=== PATIENT | male | born 1960 | race Caucasian/White ===

== ENCOUNTER → 2018-08-04 10:58 | Outpatient (POV) | payer BC, SELFPAY | PROVIDERS: Visit Provider Nurse Practitioner Family | DX: Z00.00 Encounter for general adult medical examination without abnormal findings (principal) ==

== ENCOUNTER 2018-10-16 09:30 | Outpatient (RCR) | payer BC, SELFPAY | END 2018-10-16 09:35 | disposition home or self-care (01) | LOC: PT 09:30 | PROVIDERS: Visit Provider Orthopaedic Surgery | DX: Z96.641 Presence of right artificial hip joint (principal); M25.551 Pain in right hip | CPT/HCPCS: 97110; 97163 ==

== ENCOUNTER → 2019-07-14 08:45 | Outpatient (CLI) | payer BC, SELFPAY ==
--- NOTE | 2019-07-14 08:49 | CT_ITS ---
PROCEDURE: CT LUNG SCREENING CLINICAL INDICATION: H/O NICOTINE DEPENDENCE Forty-three pack-year smoking history, asymptomatic for lung cancer COMPARISON: No exams were available for comparison TECHNIQUE: The exam was performed on a GE Light Speed [address] scanner using 2.90 mGy CTDI. A low dose helical CT CHEST was performed on a multi-detector scanner. All CT scans at the facility use one or more dose reduction, viz: automated exposure control, ma/kV adjustment per patient size (including targeted exams where dose is matched to indication, i.e. head), or iterative reconstruction technique. The LDCT was performed in a facility that meets the criteria for the screening program. Data regarding this exam was submitted to ACR which is an approved registry. The order for this exam indicates that it came as a result of a lung cancer screening counseling shard decision-making visit that included all the elements required of such a visit including smoking cessation. The radiologist interpreting this exam meets the [facility] criteria for the LDCT lung cancer screening program. The exam is reported using the Lung-RADS classification scale and reported to the ACR registry. NOTE: This study was performed for the specific purposes of lung cancer screening and is not an alternative to diagnostic chest CT. RADIATION DOSE: CTDI vol(CT dose Index-volume) = 2.90mG DLP (Dose Length Product) = 116.98 mGcm Lung Rads Category: FINDINGS: Changes of COPD with scarring. 7 mm noncalcified nodules present in the superior segment of the right lower lobe. Mild paraseptal emphysematous change OTHER FINDINGS: Scattered small axillary nodes measuring up to 1.5 x 1 cm in the left axilla. Coronary artery calcifications are present IMPRESSION: Lung rads category 3, probably benign. Recommend six-month CT chest without and with contrast Dictated by: Edgardo Goodrich MD 07/19/2019 11:55 Electronically signed by Edgardo Goodrich MD in [place] 07/19/2019 11:55
== END ==
PROVIDERS: PCP Internal Medicine Adolescent Medicine; Visit Provider Internal Medicine Adolescent Medicine
DX: Z87.891 Personal history of nicotine dependence (principal); Z12.2 Encounter for screening for malignant neoplasm of respiratory organs

== ENCOUNTER → 2020-01-14 08:19 | Outpatient (CLI) | payer BC, SELFPAY ==
[2020-01-14 08:46] LABS: Blood Urea Nitrogen 8 mg/dl (9-20); Estimated Glomerular Filt Rate 99 ml/min (>60); GFR (African American) 120 ML/MIN (>60)
--- NOTE | 2020-01-14 09:02 | CT_ITS ---
PROCEDURE: CT CHEST WO/W CON CLINCAL INDICATION: PULMONARY NODULE follow up, lung nodules COMPARISON: CT CT LUNG SCREENING from 07/14/2019 TECHNIQUE: IV Contrast: 75ml Isovue 370 Axial images obtained with sagittal and coronal reformats. All CT scans at the facility use one or more dose reduction, viz: automated exposure control, ma/kV adjustment per patient size (including targeted exams where dose is matched to indication, i.e. head), or iterative reconstruction technique. FINDINGS: HEART AND MEDIASTINAL STRUCTURES: Coronary artery calcifications present. No mediastinal or hilar mass or adenopathy. LUNGS AND PLEURAL SPACES: Changes of COPD with scattered areas of scarring. 2 mm noncalcified nodule right upper lobe laterally image 23 unchanged. 3 mm fissural nodule in the right major fissure unchanged. There is a 7 mm noncalcified image 39 unchanged. No new nodules evident. No effusions or infiltrates. There is some mild paraseptal emphysematous changes. BONY STRUCTURES: No acute bony abnormalities apparent. UPPER ABDOMEN: There is nonspecific thickening of the esophagus in its mid and lower 3rd ADDITIONAL FINDINGS: There is left axillary adenopathy. Nodes in the left axilla measure up to 2 by 1.3 cm. These nodes have increased in size compared to the previous exam with that particular lymph node previously measuring 1.5 by 0.8 cm. Small nodes are present in the right axilla which are not significantly changed. IMPRESSION: 1. No change in the 7 mm right lower lobe nodule. Recommend resume LDCT June 2020 2. Mild thickening of the mid distal aspect of the esophagus. This is nonspecific and could be inflammatory/infectious or neoplastic. Upper endoscopy or barium swallow may provide further evaluation. 3. Left axillary adenopathy. Please correlate with clinical findings. These could be reactive or neoplastic. Dictated by: Edgardo Goodrich MD 01/15/2020 09:06 Edgardo Goodrich MD in [place] 01/15/2020 09:06
== END ==
PROVIDERS: PCP Internal Medicine Adolescent Medicine; Visit Provider Internal Medicine Adolescent Medicine
DX: R91.1 Solitary pulmonary nodule (principal)
CPT/HCPCS: 36415; 71270; 82565; 84520; Q9967

== ENCOUNTER → 2020-02-23 08:43 | Outpatient (CLI) | payer BC, SELFPAY ==
--- NOTE | 2020-02-23 08:51 | FL_ITS ---
PROCEDURE: FL BARIUM SWALLOW Referring Doctor: Hany William Patient Age:59Y CLINICAL INDICATION: ESOPHAGEAL THICKENING on CT COMPARISON: No exams were available for comparison TECHNIQUE: In the upright position the patient was observed to swallow barium in both the AP and lateral view. The cervical esophagus was examined under fluoroscopy with images obtained. The patient was then placed prone in the right anterior oblique position and was observed to swallow barium with Valsalva technique . FLUOROSCOPY TIME: 1 minutes 18 seconds FINDINGS: There was no evidence of aspiration. There was normal peristalsis. Normal minimal cricopharyngeus muscle indentation. No focal filling defects/no discrete ulceration at the soft disc. No masses or strictures.. Was this study performed to further evaluate thickening of the distal esophagus noted on on CT. The esophagus appears overall quite normal. I would only question that at distal esophagus area demonstrates some slightly generous accentuated longitudinal mucosal folds at the distal esophagus which may reflect some chronic changes. On this yields a slight undulating appearance on some of the images and there may be residual with small diverticulum posteriorly at distal esophagus lateral images. Ulceration given its smooth and pliable appearance.-Esophagus appears quite pliable and distensible I see no mass or stricture. There is a small Schatzki's ring just at the GE junction with a only scant barely evident hiatal hernia demonstrated with Valsalva maneuver. Barely appreciable. There was some mild GE reflux noted during the course of study. Of this study focuses on this off thus a limited images of stomach show normal contour and normal duodenal bulb IMPRESSION: No prominent findings at esophagus only minor observations: There is only suggestion of mildly prominent folds and undulation throughout distal esophagus which may correlate with the mild thickened appearance distal esophagus, as seen on recent CT. Reflecting mild chronic changes . Consider endoscopy to further evaluate Also incidental note tiny pliable probable small residual diverticulum directed posteriorly 20 cm above the GE junction (residual of prior ulcer also considered but appears quite pliable for such) Barely appreciable tiny hiatal hernia only seen with with Valsalva maneuver, with minimal Schatzki's ring here. Mild GE reflux briefly observed Dictated by: Dylan Gonsalez MD 02/24/2020 08:41 Dylan Gonsalez MD in [place] 02/24/2020 08:41
== END ==
PROVIDERS: PCP Internal Medicine Adolescent Medicine; Visit Provider Internal Medicine Adolescent Medicine
DX: K22.8 Other specified diseases of esophagus (principal)
CPT/HCPCS: 74220

== ENCOUNTER → 2020-03-31 09:48 | Outpatient (CLI) | payer BC, SELFPAY ==
[2020-03-31 11:07] LABS: Coronavirus 19 IgG Antibody Negative (Negative); Coronavirus 19 IgM Antibody Negative (Negative)
== END ==
PROVIDERS: Visit Provider Internal Medicine Gastroenterology
DX: Z01.812 Encounter for preprocedural laboratory examination (principal); Z20.822 Contact with and (suspected) exposure to COVID-19; Z13.810 Encounter for screening for upper gastrointestinal disorder
CPT/HCPCS: 36415; 86328

== ENCOUNTER 2020-04-01 10:27 | Day surgery (SDC) | payer BC, SELFPAY ==
[2020-03-24 11:56] VITALS: BMI 33.3
[2020-04-01] VITALS (7 sets, daily range): BP systolic 125–142; BP diastolic 41–98; PULSE 59–72; RESP 16–18; TEMP 36.2–36.4; O2SAT 97–100
--- NOTE | 2020-04-01 11:48 | HMH.ANESCL ---
[facility] Anesthesia Checklist - Patient Identification Patient Identification: Arm Band - Structural Data Admitted From: Home Planned Operative Procedure/s: egd Consent for Planned Operative Procedure(s) Verified: Yes Verified Documents: Surgical Consent, History and Physical - NPO Status Verified Time NPO: 00:00 - Additional verifications Anesthesia Reactions: No - Airway Assessment C-Spine Mobility Assessed: Yes (mp2) TMJ Mobility Assessed: Yes Dentition: Good Dentition - Neurological Assessment Level of Consciousness: Awake, Alert - Anesthesia Plan Anesthesia Risk discussed: Yes Anesthesia Plan: Verified ASA Class: II Anesthesia Type: MAC [facility] History I have reviewed the patient's past medical history: Yes Medical History: Reports:: Cancer (PROSTATE), Hypertension, Lung Disease (smoker, augustine) Denies:: Diabetes Mellitus Type 1, Diabetes Mellitus Type 2, Internal Pacemaker, MRSA, Seizures *Have you ever received a pneumonia vaccine?: No *Have you received a flu vaccine this season?: Yes Anesthesia experience/problems:: nac Laterality Cases: Right: Total Hip Replacement Other Surgeries: No: Pacemaker Amputation: No Fractures: No - *Social History Smoking Status: Current every day smoker Tobacco Type: cigarettes # Packs/Day (cigarettes): 1 Alcohol Intake: current Alcohol Intake Frequency:: a few times a week Substance Use Type: denies use *Occupational Status:: employed *Travel in the last 8 weeks: None Family Hx:: No significant family history
--- NOTE | 2020-04-01 12:04 | HMH.PROC ---
[facility] Procedure Note Procedure Note:: Upper Endoscopy Procedure Report: Esophagogastroduodenoscopy with cold biopsies and TTS balloon dilation Endoscopost: Renato Alfonso II, MD Referring Physician: William Leach M.D. Date of Procedure: April 01, 2020 Equipment: Olympus GIF 180 standard upper endoscope Sedation: MAC sedation Indications: Mr. Felix is a 59-year-old gentleman with mid upper sternal pain and pressure and the feeling that he needs to belch but cannot. He does have intermittent hiccups. He also has some globus sensation. In the past he has had occasional dysphagia but does not report this regularly. He reports no nausea, early satiety, abdominal pain or dyspepsia. He did have an EGD with me in August 2018 and had mild esophageal candidiasis and esophageal dysmotility. The patient did have a barium swallow on February 23, 2020 that showed mildly prominent folds throughout the distal esophagus with mild thickening especially the distal esophagus. His CAT scan from prior to this on January 15, 2020 showed mild thickening of the mid/distal esophagus. There was some left axillary adenopathy. Procedure: Prior to the procedure, a history and physical exam was performed, and patient's medications and allergies were reviewed. The risks, benefits and alternatives of the sedation and procedure were discussed with the patient. All questions were answered and informed consent was obtained. The patient was brought to the procedure room. Patient identification and proposed procedure were verified by the physician and the nurse. The patient was placed in a left lateral decubitus position and the scope was passed under direct vision. Throughout the procedure, the patient's blood pressure, pulse, and oxygen saturations were monitored continuously. The upper GI endoscopy was accomplished without difficulty. The patient tolerated the procedure well. Findings: The scope was passed directly into the upper esophagus and advanced to the third portion of the duodenum. The post bulbar duodenum and duodenal bulb were normal with normal mucosa and conniventes. The scope was withdrawn through a normal duodenal bulb and pylorus into the stomach. There was mild linear reactive gastropathy of the antrum. The remainder of the antrum, body and fundus of the stomach were grossly normal. Upon retroflexion there was a small 1 to 2 cm hiatal hernia. 2 biopsies were taken in the antrum and along the lesser curvature for histology to rule out gastritis and/or H pylori. The scope was then withdrawn into the esophagus. There was a distal Schatzki's ring. There was very minimal whitish plaque in the proximal esophagus consistent with mild candidal esophagitis. There were strong tertiary contractions and evidence of moderate esophageal dysmotility. The entire esophagus was dilated to 60 Italian/20 mm with a TTS hydrostatic balloon. There was some resistance at the cricopharyngeus. There was also full dilation of the Schatzki's ring with the original diameter being 14 to 15 mm. The remainder of the esophageal mucosa was normal. Impression: 1. Cricopharyngeal spasm status post dilation to 20 mm 2. Nonerosive GERD with moderate esophageal dysmotility and very small 2 cm hiatal hernia 3. Schatzki's ring dilated to 20 mm 4. Mild linear reactive gastropathy Plan: I would like for the patient to remain on PPI therapy for 3 months. I am also going to suggest promotility therapy versus fiber bowel regimen. I will follow-up the biopsies..
== END 2020-04-01 12:59 | disposition home or self-care (01) ==
LOC: OUTP 10:34
PROVIDERS: PCP Internal Medicine Adolescent Medicine; Visit Provider Internal Medicine Gastroenterology
PROC: 0DJ08ZZ Inspection of Upper Intestinal Tract, Via Natural or Artificial Opening Endoscopic (ICD-10-PCS; CPT 43235; principal; 2020-04-01 11:30)
DX: J39.2 Other diseases of pharynx (principal); K21.9 Gastro-esophageal reflux disease without esophagitis; K22.4 Dyskinesia of esophagus; K44.9 Diaphragmatic hernia without obstruction or gangrene; K22.2 Esophageal obstruction; K31.9 Disease of stomach and duodenum, unspecified; Z87.19 Personal history of other diseases of the digestive system; Z85.46 Personal history of malignant neoplasm of prostate; I10 Essential (primary) hypertension; G47.33 Obstructive sleep apnea (adult) (pediatric); Z96.641 Presence of right artificial hip joint; Z72.0 Tobacco use
CPT/HCPCS: 43239; 43249; C1726

== ENCOUNTER → 2020-07-01 07:48 | Outpatient (CLI) | payer BC, SELFPAY ==
[2020-07-01 08:30] LABS: Basophils # 0.1 K/mm3 (0-0.2); Basophils % 0.8 % (0.1-2.0); Eosinophils # 0.3 K/mm3 (0.0-0.4); Eosinophils % 3.5 % (0.1-12.0); Hematocrit 41.5 % (42.0-52.0); Hemoglobin 13.7 g/dL (14.1-18.0); Lymphocytes # 2.6 K/mm3 (0.7-4.5); Lymphocytes % 37.1 % (10-50); Mean Corpuscular HGB Conc 33.1 g/dL (31.8-35.4); Mean Corpuscular Hemoglobin 29.8 pg (27.0-31.2); Mean Corpuscular Volume 90.1 fl (80-94); Mean Platelet Volume 7.4 fl (7.4-10.4); Monocytes # 0.6 K/mm3 (0.1-1.0); Monocytes % 8.9 % (1.7-9.3); Neutrophils # 3.5 K/mm3 (1.8-7.8); Neutrophils % 49.7 % (37.0-80.0); Platelet Count 393 K/mm3 (142-424); Red Blood Count 4.61 M/mm3 (4.60-6.20); Red Cell Distribution Width 12.6 % (11.5-17.5)
[2020-07-01 09:29] LABS: Alanine Aminotransferase 18 U/L (12-78); Albumin Level 4.8 g/dl (3.5-5.0); Albumin/Globulin Ratio 1.4 (1.1-1.8); Alkaline Phosphatase 72 U/L (38-126); Anion Gap 10.3 mEq/L (5-15); Aspartate Amino Transferase 31 U/L (17-59); Bilirubin,Total 0.2 mg/dl (0.2-1.3); Blood Urea Nitrogen 13 mg/dl (9-20); Calcium 10.1 mg/dl (8.4-10.2); Carbon Dioxide 29 mmol/L (22.0-30.0); Chloride 103 mmol/L (98-107); Chol/HDL Ratio 3.4 (1-3.5); Cholesterol 190 mg/dl (140-200); Estimated Glomerular Filt Rate 99 ml/min (>60); GFR (African American) 120 ML/MIN (>60); Globulin 3.4 g/dL (1.3-3.2); Glucose 100 mg/dl (74-100); HDL Cholesterol 56 mg/dl (40-60); Potassium 5.3 mmoL/L (3.5-5.1); Sodium 137 mmol/L (136-145); Total Protein,Serum 8.2 g/dl (6.3-8.2); Triglycerides 72 mg/dl (30-150); VLDL Cholesterol 14 mg/dL (0-40)
[2020-07-01 10:22] LABS: 25-OH Vitamin D, Total 35.2 ng/mL (30-100)
== END ==
PROVIDERS: Visit Provider Internal Medicine Adolescent Medicine
DX: C61 Malignant neoplasm of prostate (principal); E78.5 Hyperlipidemia, unspecified; M12.9 Arthropathy, unspecified
CPT/HCPCS: 36415; 80053; 80061; 82306; 84153; 85025

== ENCOUNTER → 2020-12-28 06:58 | Outpatient (CLI) | payer BC, SELFPAY ==
[2020-12-28 07:44] LABS: Basophils # 0.1 K/mm3 (0-0.2); Basophils % 0.8 % (0.1-2.0); Eosinophils # 0.3 K/mm3 (0.0-0.4); Eosinophils % 4.1 % (0.1-12.0); Hematocrit 42.4 % (42.0-52.0); Hemoglobin 13.3 g/dL (14.1-18.0); Lymphocytes # 2.4 K/mm3 (0.7-4.5); Lymphocytes % 36.4 % (10-50); Mean Corpuscular HGB Conc 31.3 g/dL (31.8-35.4); Mean Corpuscular Hemoglobin 30.5 pg (27.0-31.2); Mean Corpuscular Volume 97.5 fl (80-94); Mean Platelet Volume 7.3 fl (7.4-10.4); Monocytes # 0.4 K/mm3 (0.1-1.0); Monocytes % 6.9 % (1.7-9.3); Neutrophils # 3.4 K/mm3 (1.8-7.8); Neutrophils % 51.9 % (37.0-80.0); Platelet Count 375 K/mm3 (142-424); Red Blood Count 4.35 M/mm3 (4.60-6.20); Red Cell Distribution Width 12.4 % (11.5-17.5); White Blood Count 6.5 K/mm3 (4.8-10.8)
[2020-12-28 07:53] LABS: Alanine Aminotransferase 19 U/L (12-78); Albumin Level 4.3 g/dl (3.5-5.0); Albumin/Globulin Ratio 1.4 (1.1-1.8); Alkaline Phosphatase 63 U/L (38-126); Anion Gap 9.8 mEq/L (5-15); Aspartate Amino Transferase 28 U/L (17-59); Bilirubin,Total 0.2 mg/dl (0.2-1.3); Blood Urea Nitrogen 13 mg/dl (9-20); Calcium 9.5 mg/dl (8.4-10.2); Carbon Dioxide 27 mmol/L (22.0-30.0); Chloride 105 mmol/L (98-107); Chol/HDL Ratio 3.3 (1-3.5); Cholesterol 179 mg/dl (140-200); Estimated Glomerular Filt Rate 115 ml/min (>60); GFR (African American) 139 ML/MIN (>60); Globulin 3.1 g/dL (1.3-3.2); Glucose 97 mg/dl (74-100); HDL Cholesterol 55 mg/dl (40-60); Potassium 4.8 mmoL/L (3.5-5.1); Sodium 137 mmol/L (136-145); Total Protein,Serum 7.4 g/dl (6.3-8.2); Triglycerides 68 mg/dl (30-150); VLDL Cholesterol 14 mg/dL (0-40)
[2020-12-28 08:03] LABS: Direct LDL Cholesterol 97.17 mg/dL (100-129)
[2020-12-28 08:23] LABS: Thyroid Stimulating Hormone 2.03 uIU/mL (0.465-4.68)
[2020-12-28 10:36] LABS: Prostate Specific Ag Screen 3.6 ng/ml (0.0-4.0)
== END ==
PROVIDERS: Visit Provider Internal Medicine Adolescent Medicine
DX: E78.5 Hyperlipidemia, unspecified (principal); M12.9 Arthropathy, unspecified; C61 Malignant neoplasm of prostate; Z12.5 Encounter for screening for malignant neoplasm of prostate
CPT/HCPCS: 36415; 80053; 80061; 84443; 85025; G0103

== ENCOUNTER → 2021-02-02 10:42 | Outpatient (CLI) | payer BC, SELFPAY ==
--- NOTE | 2021-02-02 10:44 | CT_ITS ---
PROCEDURE: CT LUNG SCREENING CLINICAL INDICATION: H/O NICOTINE DEPENDENCE COMPARISON: CT CT LUNG SCREENING from 07/14/[address] CHEST WO/W CON from 01/14/2020 TECHNIQUE: The exam was performed on a GE [place] Speed [address] scanner using 2.90 mGy CTDI. A low dose helical CT CHEST was performed on a multi-detector scanner. All CT scans at the facility use one or more dose reduction, viz: automated exposure control, ma/kV adjustment per patient size (including targeted exams where dose is matched to indication, i.e. head), or iterative reconstruction technique. The LDCT was performed in a facility that meets the criteria for the screening program. Data regarding this exam was submitted to ACR which is an approved registry. The order for this exam indicates that it came as a result of a lung cancer screening counseling shard decision-making visit that included all the elements required of such a visit including smoking cessation. The radiologist interpreting this exam meets the CMS criteria for the LDCT lung cancer screening program. The exam is reported using the Lung-RADS classification scale and reported to the ACR registry. NOTE: This study was performed for the specific purposes of lung cancer screening and is not an alternative to diagnostic chest CT. RADIATION DOSE: CTDI vol(CT dose Index-volume) = 2.90mG DLP (Dose Length Product) = 104.73 mGcm FINDINGS: COPD changes with scattered areas of scarring. No change 7 mm nodule right lower lobe posterior laterally. No new nodules evident. OTHER FINDINGS: Coronary artery calcifications. Gynecomastia. There is persistent thickening of the mid distal esophagus IMPRESSION: Lung-RADS Category 2 Benign Appearance or Behavior Follow-up: Continue annual screening with LDCT in 12 months Persistent thickening of the mid distal esophagus. Dictated by: Edgardo Goodrich MD 02/06/2021 09:36 Edgardo Goodrich MD in [place] 02/06/2021 09:36
== END ==
PROVIDERS: PCP Internal Medicine Adolescent Medicine; Visit Provider Internal Medicine Adolescent Medicine
DX: Z87.891 Personal history of nicotine dependence (principal); Z12.2 Encounter for screening for malignant neoplasm of respiratory organs
CPT/HCPCS: 71271

== ENCOUNTER → 2021-07-11 08:18 | Outpatient (CLI) | payer BC, SELFPAY ==
--- NOTE | 2021-07-11 08:25 | US_ITS ---
FINAL REPORT CLINICAL HISTORY: H/O NICOTINE DEPENDENCE FINDINGS: Limited sonographic images of the abdominal aorta were obtained. The aorta measures up to 2.0 cm. Moderate plaque is present. IMPRESSION: Moderate plaque of the abdominal aorta without evidence of aneurysm. Reviewed, Interpreted and Dictated by Carlos Lamas III, MD Transcribed by No Gross Authenticated by Carlos Lamas III, MD on 07/11/2021 11:12:09 AM [facility]
== END ==
PROVIDERS: PCP Internal Medicine Adolescent Medicine; Visit Provider Internal Medicine Adolescent Medicine
DX: Z87.891 Personal history of nicotine dependence (principal)
CPT/HCPCS: 76705

== ENCOUNTER → 2022-02-27 09:41 | Outpatient (CLI) | payer BC, SELFPAY ==
[2022-02-27 11:02] LABS: Blood Urea Nitrogen 15 mg/dl (9-20); Estimated Glomerular Filt Rate 98 ml/min (>60); GFR (African American) 119 ML/MIN (>60)
== END ==
PROVIDERS: PCP Internal Medicine Adolescent Medicine; Visit Provider Internal Medicine Adolescent Medicine
DX: Z01.812 Encounter for preprocedural laboratory examination (principal)
CPT/HCPCS: 36415; 82565; 84520

== ENCOUNTER → 2022-02-28 12:48 | Outpatient (CLI) | payer BC, SELFPAY ==
--- NOTE | 2022-02-28 13:03 | CT_ITS ---
FINAL REPORT TECHNIQUE: After the administration of intravenous contrast, axial images through the chest were performed by computed tomography. This study was performed with techniques to keep radiation doses as low as reasonably achievable, (ALARA). Individualized dose reduction techniques using automated exposure control or adjustment of mA and/or kV according to the patient's size were employed. CLINICAL HISTORY: PULMONARY NODULE COMPARISON: February 02, 2021 and January 14, 2020 FINDINGS: There is no axillary adenopathy. There is no hilar or mediastinal adenopathy. The heart size is normal. There is no pericardial or pleural effusion. Limited images of the upper abdomen are unremarkable. There is a 5 mm right lower lobe nodule which is unchanged. Other nodules previously described are not well appreciated on the current exam. There is abnormal lung segment wall thickening of the esophagus. IMPRESSION: Stable right lower lobe nodule, considered benign granuloma. Esophageal wall thickening, recommend correlation with follow-up EGD. Reviewed, Interpreted and Dictated by Vahid Quijano MD Transcribed by Sammie Mark Authenticated and . [facility]
== END ==
PROVIDERS: PCP Internal Medicine Adolescent Medicine; Visit Provider Internal Medicine Adolescent Medicine
DX: R91.1 Solitary pulmonary nodule (principal)
CPT/HCPCS: 71260; Q9967

== ENCOUNTER 2022-03-04 11:30 | Emergency (ER) | payer BC, SELFPAY ==
--- NOTE | 2022-03-04 11:39 | XR_ITS ---
PROCEDURE INFORMATION: Exam: XR Right Clavicle, Complete Exam date and time: 03/04/2022 11:43 AM Age: 61 years old Clinical indication: Injury or trauma; Fall; Blunt trauma (contusions or hematomas); Shoulder; Right TECHNIQUE: Imaging protocol: Radiologic exam of the Right clavicle. Complete exam. Views: Any number of views. COMPARISON: CT CHEST W CON 02/28/2022 1:20 PM FINDINGS: Bones/joints: Normal. Soft tissues: Normal. IMPRESSION: No acute findings.
--- NOTE | 2022-03-04 11:39 | XR_ITS ---
PROCEDURE INFORMATION: Exam: XR Right Shoulder Exam date and time: 03/04/2022 11:45 AM Age: 61 years old Clinical indication: Injury or trauma; Fall; Blunt trauma (contusions or hematomas); Shoulder; Right TECHNIQUE: Imaging protocol: Radiologic exam of the Right shoulder. Views: 2 or more views. COMPARISON: CR XR CLAVICLE RT 03/04/2022 11:43 AM FINDINGS: Bones/joints: Normal. Soft tissues: Normal. IMPRESSION: No acute findings.
--- NOTE | 2022-03-04 11:39 | XR_ITS ---
PROCEDURE INFORMATION: Exam: XR Right Hand Exam date and time: 03/04/2022 11:48 AM Age: 61 years old Clinical indication: Injury or trauma; Fall; Blunt trauma (contusions or hematomas); Shoulder; Right TECHNIQUE: Imaging protocol: Radiologic exam of the Right hand. Views: 3 or more views. COMPARISON: No relevant prior studies available. FINDINGS: Bones/joints: Normal. Soft tissues: Normal. IMPRESSION: No acute findings.
[2022-03-04 12:05] VITALS: BP 148/105; PULSE 90; RESP 20; TEMP 36.7; O2SAT 95; BMI 28.7
--- NOTE | 2022-03-04 12:48 | EXP.UTC ---
Discharge Plan Disposition Patient Disposition: Home, Self-Care Condition: Good Prescriptions Prescriptions: No Action lisinopril 10 MG tablet 10 mg PO DAILY Referrals Follow up/Referrals: Art Garza DO [Staff Physician] - See instructions (Call for appointment if pain persists) William Leach MD [Primary Care Provider] - See instructions Activity Restrictions/Add. Instructions Additional Instructions/Restrictions: *RICE, Rest the extremity, Ice 15-20 minutes 3-4 times daily, Compress- wear the jim wrap as discussed as much as possible to help reduce swelling and pain, Elevate the extremity when at rest *Jim wrap and sling is for support and help control swelling, use it except in the shower. Be sure that is not to tight but not to loose either *Elevate when resting? *Ibuprofen 600-800mg every 6-8 hours as needed for pain an inflammation if your Doctor has said you can take it. If need something more can take Tylenol in between doses of Ibuprofen to help Follow up with your Family Doctor or Orthopedics if pain continues or does not improve Return if needed Straight to ER if any life threatening symptoms Clinical Impressions Clinical Impression: Right shoulder pain Qualifiers: Chronicity: acute Qualified Code(s): M25.511 - Pain in right shoulder Contusion of hand Qualifiers: Encounter type: initial encounter Laterality: right Qualified Code(s): S60.221A - Contusion of right hand, initial encounter Stand Alone Forms Stand Alone Forms: Work/School Release Instructions Patient Instructions: How to Use a Sling, How To Perform RICE (Rest, Ice, Compress, Elevate), How to Apply an Jim Wrap Discharge ED Provider: Cecilia Shah [facility] General Stated complaint: Fall 03/03 RT side shoulder and hand pain Mode of Arrival: Ambulatory Source of Information: Patient Limitations: No Limitations Time Seen by Provider: 03/04/22 12:48 Description of Symptoms (Recalled from Triage Doc. by RN): PATIENT C/O RIGHT SHOULDER AND ARM PAIN. HE REPORTS HE MISSED A STEP COMING OUT OF A [employer] YESTERDAY AND FELL, LANDING ON RIGHT SIDE. DENIES ANY OTHER INJURIES. SWELLING TO RIGHT HAND NOTED HEENT Symptoms (Recalled from RN notes): No Resp Symptoms (Recalled from RN notes): No Skin Symptoms (Recalled from RN notes): No MS Symptoms (Recalled from RN notes): Yes Functional Status (Recalled from RN notes): WNL History of Present Illness Provider Complaint: Patient states that he was coming out of restaurant yesterday when he missed the last step stumbled and fell on his right side States that since then he has been having pain in his right shoulder when he tries to raise his arm up and having pain and swelling in his right hand States that today his hand was still swollen and still hurting when he would raise his arm so he came in to get it checked out denies any other injuries Denies any pain in elbow Related Data Home Medications Medication Instructions Recorded Confirmed lisinopril 10 mg tablet 10 mg PO DAILY Hypertension 04/01/18 03/04/22 Allergies Allergy/AdvReac Type Severity Reaction Status Date / Time penicillin G [PENICILLIN G] Allergy Unknown Verified 04/01/20 11:17 Worker's Comp Is this a Worker's Comp case?: No [facility] Disclaimer: The information contained in this section may have been updated after the patient was seen, as this information can be updated by other users. Medical History (Updated 03/04/22 @ 13:01 by Cecilia Shah APRN) Hypertension Surgical History (Updated 03/04/22 @ 12:17 by Lisa Reyes RN) History of hip surgery Social History (Updated 03/04/22 @ 12:17 by Lisa Reyes RN) Smoking Status: Current every day smoker tobacco type: cigarettes packs per day: 1 alcohol intake: current substance use type: denies use current occupational status: employed Travel in the last 8 weeks: None caffeine: Yes ROS Obtained: Yes All systems reviewed
[2022-03-04 13:05] VITALS: BP 148/105; PULSE 90; RESP 20; TEMP 36.7; O2SAT 95
== END 2022-03-04 13:17 | disposition home or self-care (01) ==
PROVIDERS: Emergency Provider Nurse Practitioner; PCP Internal Medicine Adolescent Medicine
DX: M25.511 Pain in right shoulder (principal); S60.221A Contusion of right hand, initial encounter; W01.0XXA Fall on same level from slipping, tripping and stumbling without subsequent striking against object, initial encounter; Y92.480 Sidewalk as the place of occurrence of the external cause
CPT/HCPCS: 73000; 73030; 73130; 99213; G0463

== ENCOUNTER → 2022-04-18 08:53 | Outpatient (CLI) | payer BC, SELFPAY ==
[2022-04-18 09:11] LABS: Basophils # 0.1 K/mm3 (0-0.2); Eosinophils # 0.3 K/mm3 (0.0-0.4); Hematocrit 41.3 % (42.0-52.0); Hemoglobin 13.4 g/dL (14.1-18.0); Lymphocytes # 2.2 K/mm3 (0.7-4.5); Lymphocytes % 31.4 % (10-50); Mean Corpuscular HGB Conc 32.5 g/dL (31.8-35.4); Mean Corpuscular Hemoglobin 30.4 pg (27.0-31.2); Mean Corpuscular Volume 93.7 fl (80-94); Mean Platelet Volume 7.3 fl (7.4-10.4); Monocytes # 0.7 K/mm3 (0.1-1.0); Monocytes % 10.7 % (1.7-9.3); Neutrophils # 3.6 K/mm3 (1.8-7.8); Neutrophils % 52.9 % (37.0-80.0); Platelet Count 402 K/mm3 (142-424); Red Blood Count 4.41 M/mm3 (4.60-6.20); Red Cell Distribution Width 13.3 % (11.5-17.5); White Blood Count 6.9 K/mm3 (4.8-10.8)
[2022-04-18 09:42] LABS: Chloride 104 mmol/L (98-107)
[2022-04-18 09:43] LABS: Potassium 4.4 mmoL/L (3.5-5.1)
[2022-04-18 09:45] LABS: Alanine Aminotransferase 20 U/L (12-78); Aspartate Amino Transferase 31 U/L (17-59); Blood Urea Nitrogen 15 mg/dl (9-20); Estimated Glomerular Filt Rate 98 ml/min (>60); GFR (African American) 119 ML/MIN (>60)
[2022-04-18 09:46] LABS: Albumin Level 4.5 g/dl (3.5-5.0); Albumin/Globulin Ratio 1.3 (1.1-1.8); Alkaline Phosphatase 72 U/L (38-126); Bilirubin,Total 0.5 mg/dl (0.2-1.3); Calcium 9.2 mg/dl (8.4-10.2); Carbon Dioxide 27 mmol/L (22.0-30.0); Globulin 3.5 g/dL (1.3-3.2); Glucose 91 mg/dl (74-100)
[2022-04-18 14:22] LABS: Anion Gap 9.4 mEq/L (5-15); Sodium 136 mmol/L (136-145)
== END ==
PROVIDERS: PCP Internal Medicine Adolescent Medicine; Visit Provider Student in an Organized Health Care Education/Training Program
DX: J39.2 Other diseases of pharynx (principal)
CPT/HCPCS: 36415; 80053; 85025

== ENCOUNTER → 2022-06-26 07:16 | Outpatient (CLI) | payer BC, SELFPAY ==
[2022-06-26 07:46] LABS: Basophils % 0.5 % (0.1-2.0); Eosinophils # 0.3 K/mm3 (0.0-0.4); Eosinophils % 4.1 % (0.1-12.0); Hematocrit 42.3 % (42.0-52.0); Hemoglobin 13.5 g/dL (14.1-18.0); Lymphocytes # 2.4 K/mm3 (0.7-4.5); Lymphocytes % 35.5 % (10-50); Mean Corpuscular HGB Conc 31.9 g/dL (31.8-35.4); Mean Corpuscular Hemoglobin 29.6 pg (27.0-31.2); Mean Corpuscular Volume 92.9 fl (80-94); Mean Platelet Volume 7.5 fl (7.4-10.4); Monocytes # 0.6 K/mm3 (0.1-1.0); Monocytes % 8.5 % (1.7-9.3); Neutrophils # 3.4 K/mm3 (1.8-7.8); Neutrophils % 51.3 % (37.0-80.0); Platelet Count 367 K/mm3 (142-424); Red Blood Count 4.56 M/mm3 (4.60-6.20); Red Cell Distribution Width 13.1 % (11.5-17.5); White Blood Count 6.6 K/mm3 (4.8-10.8)
[2022-06-26 08:13] LABS: Chloride 98 mmol/L (98-107); Sodium 137 mmol/L (136-145)
[2022-06-26 08:15] LABS: Blood Urea Nitrogen 12 mg/dl (9-20); Estimated Glomerular Filt Rate 115 ml/min (>60); GFR (African American) 139 ML/MIN (>60)
[2022-06-26 08:16] LABS: Alanine Aminotransferase 23 U/L (12-78); Albumin Level 4.4 g/dl (3.5-5.0); Albumin/Globulin Ratio 1.4 (1.1-1.8); Alkaline Phosphatase 67 U/L (38-126); Aspartate Amino Transferase 33 U/L (17-59); Bilirubin,Total 0.5 mg/dl (0.2-1.3); Calcium 9.4 mg/dl (8.4-10.2); Carbon Dioxide 29 mmol/L (22.0-30.0); Chol/HDL Ratio 3.2 (1-3.5); Cholesterol 170 mg/dl (140-200); Globulin 3.2 g/dL (1.3-3.2); Glucose 98 mg/dl (74-100); HDL Cholesterol 53 mg/dl (40-60); Total Protein,Serum 7.6 g/dl (6.3-8.2); Triglycerides 59 mg/dl (30-150); VLDL Cholesterol 12 mg/dL (0-40)
[2022-06-26 08:27] LABS: Direct LDL Cholesterol 98.43 mg/dL (100-129)
[2022-06-26 08:51] LABS: Prostate Specific Ag, Diagnost 4.45 ng/ml (0.0-4.0)
== END ==
PROVIDERS: PCP Internal Medicine Adolescent Medicine; Visit Provider Internal Medicine Adolescent Medicine
DX: C61 Malignant neoplasm of prostate (principal); E78.5 Hyperlipidemia, unspecified; L40.9 Psoriasis, unspecified
CPT/HCPCS: 36415; 80053; 80061; 84153; 85025

== ENCOUNTER → 2022-07-06 07:13 | Outpatient (CLI) | payer BC, OTHER, SELFPAY ==
--- NOTE | 2022-07-06 07:21 | NM_ITS ---
FINAL REPORT CLINICAL HISTORY: PROSTATE CANCER X 8 YEARS ELEVATED PSA FINDINGS: Total body bone scan. COMPARISON: Existing relevant imaging studies: No prior bone scan. Left knee radiographs performed same day.. PROCEDURE: The patient was injected with 24.7 mCi of technetium 99m MDP. Three hour delayed images were obtained. FINDINGS: Increased tracer activity is noted in the medial part of the left knee. Correlation with radiographs revealed degenerative changes at this site. Increased activity is noted bilateral AC joints attributed to arthropathy. There is mild increased activity in the facet joints of the right lower lumbar spine and right lower cervical spine. No abnormal tracer activity is identified to suggest occult fracture or metastatic disease. IMPRESSION: No findings to indicate metastatic bone disease . Authenticated and [facility]
--- NOTE | 2022-07-06 11:47 | XR_ITS ---
FINAL REPORT CLINICAL HISTORY: hot spot on bone scan COMPARISON: Nuclear medicine bone scan from a July 06, 2022 FINDINGS: 3 views of the left knee were obtained. There is no acute fracture or dislocation. There are moderate degenerative changes greatest in the medial compartment. There is medial compartment joint space narrowing. There is no soft tissue abnormality. IMPRESSION: Moderate degenerative, changes greatest in the medial compartment, likely accounting for the abnormality on bone scan. Reviewed, Interpreted and Dictated by Carlos Lamas III, MD Transcribed by Raimundo Arias Authenticated and [facility]
== END ==
PROVIDERS: PCP Internal Medicine Adolescent Medicine; Visit Provider Internal Medicine Adolescent Medicine
DX: C61 Malignant neoplasm of prostate (principal)
CPT/HCPCS: 73562; 78306; A9503

== ENCOUNTER → 2023-01-02 06:47 | Outpatient (CLI) | payer BC, OTHER, SELFPAY ==
[2023-01-02 07:59] LABS: Basophils % 0.5 % (0.1-2.0); Eosinophils # 0.3 K/mm3 (0.0-0.4); Eosinophils % 3.8 % (0.1-12.0); Hematocrit 41.5 % (42.0-52.0); Hemoglobin 14.3 g/dL (14.1-18.0); Lymphocytes # 2.1 K/mm3 (0.7-4.5); Lymphocytes % 30.8 % (10-50); Mean Corpuscular HGB Conc 34.4 g/dL (31.8-35.4); Mean Corpuscular Hemoglobin 31.6 pg (27.0-31.2); Mean Corpuscular Volume 91.8 fl (80-94); Mean Platelet Volume 8.2 fl (7.4-10.4); Monocytes # 0.6 K/mm3 (0.1-1.0); Monocytes % 9.1 % (1.7-9.3); Neutrophils # 3.8 K/mm3 (1.8-7.8); Neutrophils % 55.8 % (37.0-80.0); Platelet Count 329 K/mm3 (142-424); Red Blood Count 4.52 M/mm3 (4.60-6.20); Red Cell Distribution Width 12.7 % (11.5-17.5); White Blood Count 6.9 K/mm3 (4.8-10.8)
[2023-01-02 08:16] LABS: Alanine Aminotransferase 22 U/L (12-78); Albumin Level 4.3 g/dl (3.5-5.0); Albumin/Globulin Ratio 1.3 (1.1-1.8); Alkaline Phosphatase 63 U/L (38-126); Anion Gap 14.8 mEq/L (5-15); Aspartate Amino Transferase 34 U/L (17-59); Bilirubin,Total 0.3 mg/dl (0.2-1.3); Blood Urea Nitrogen 14 mg/dl (9-20); Calcium 9.4 mg/dl (8.4-10.2); Carbon Dioxide 26 mmol/L (22.0-30.0); Chloride 103 mmol/L (98-107); Chol/HDL Ratio 4.2 (1-3.5); Cholesterol 171 mg/dl (140-200); Estimated Glomerular Filt Rate 86 ml/min (>60); GFR (African American) 103 ML/MIN (>60); Globulin 3.4 g/dL (1.3-3.2); Glucose 97 mg/dl (74-100); HDL Cholesterol 41 mg/dl (40-60); Potassium 4.8 mmoL/L (3.5-5.1); Sodium 139 mmol/L (136-145); Total Protein,Serum 7.7 g/dl (6.3-8.2); Triglycerides 86 mg/dl (30-150); VLDL Cholesterol 17 mg/dL (0-40)
[2023-01-02 08:33] LABS: T4 (Thyroxine) 5.6 ug/dl (5.53-11.0); Triiodothryronine (T3) Uptake 36 % (23.5-40.5)
[2023-01-02 08:46] LABS: Thyroid Stimulating Hormone 1.67 uIU/mL (0.465-4.68)
== END ==
PROVIDERS: PCP Internal Medicine Adolescent Medicine; Visit Provider Internal Medicine Adolescent Medicine
DX: C61 Malignant neoplasm of prostate (principal); E78.5 Hyperlipidemia, unspecified
CPT/HCPCS: 36415; 80053; 80061; 84436; 84443; 84479; 85025; G0103

== ENCOUNTER 2023-03-24 13:41 | Emergency (ER) | payer BC, OTHER, SELFPAY ==
[2023-03-24 14:40] VITALS: BP 141/86; PULSE 71; RESP 21; TEMP 36.9; O2SAT 97; BMI 33.7
--- NOTE | 2023-03-24 14:54 | EXP.UTC ---
Discharge Plan Disposition Patient Disposition: Home, Self-Care Condition: Good Prescriptions Prescriptions: New azithromycin [Zithromax] 250 mg tablet 250 mg PO UD DOSE PK Qty: 6 0RF Rx Instructions: Take two (2) tablets today, then one (1) tablet days #2 thru #5 benzonatate [benzonatate] 100 mg capsule 100 mg PO TIDP PRN (Reason: Cough) Qty: 30 0RF methylprednisolone 4 mg Tablets,Dose Pack 4 mg PO DIRECTED 6 Days Qty: 21 0RF Rx Instructions: Take 1 pack as directed for 6 days No Action aspirin [Adult Low Dose Aspirin] 81 mg tablet,delayed release (DR/EC) 81 mg PO DAILY lisinopril 10 MG tablet 10 mg PO DAILY Referrals Follow up/Referrals: William Leach MD [Primary Care Provider] - See instructions Activity Restrictions/Add. Instructions Additional Instructions/Restrictions: Drink plenty of fluids. Take tylenol or ibuprofen for pain or fever. Take the medications as directed. Follow up with your regular doctor. GO TO THE ER FOR ANY WORSENING SYMPTOMS Clinical Impressions Clinical Impression: Sinusitis Instructions Patient Instructions: Sinusitis, DI for Sinusitis Discharge ED Provider: Anshul Elder [facility] [place] General Stated complaint: Congested Mode of Arrival: Ambulatory Source of Information: Patient Limitations: No Limitations Time Seen by Provider: 03/24/23 14:46 Description of Symptoms (Recalled from Triage Doc. by RN): Pt was dx with COVID on 03/12/2023. He stated that he has been asymptomatic, but has been having nasal congestion. He stated that he cannot get rid of the pressure. HEENT Symptoms (Recalled from RN notes): Yes Resp Symptoms (Recalled from RN notes): No Skin Symptoms (Recalled from RN notes): No MS Symptoms (Recalled from RN notes): No Functional Status (Recalled from RN notes): n/a History of Present Illness Provider Complaint: He states that he has had sinus congestion, scratchy sore throat and sinus drainage for the past 2 days. Related Data Home Medications Medication Instructions Recorded Confirmed lisinopril 10 mg tablet 10 mg PO DAILY Hypertension 04/01/18 03/24/23 aspirin 81 mg tablet,delayed 81 mg PO DAILY heart health 03/14/22 03/24/23 release (Adult Low Dose Aspirin) Previous Rx's Medication Instructions Recorded azithromycin 250 mg tablet 250 mg PO UD DOSE PK #6 tabs 03/24/23 (Zithromax) benzonatate 100 mg capsule 100 mg PO TIDP PRN Cough #30 caps 03/24/23 methylprednisolone 4 mg tablets in 4 mg PO DIRECTED 6 days #21 tabs 03/24/23 a dose pack Allergies Allergy/AdvReac Type Severity Reaction Status Date / Time penicillin G [PENICILLIN G] Allergy Unknown Verified 03/24/23 14:53 Worker's Comp Is this a Worker's Comp case?: No [facility] Disclaimer: The information contained in this section may have been updated after the patient was seen, as this information can be updated by other users. Medical History Cricopharyngeal hypertrophy Hypertension Surgical History History of hip surgery Family History Other Family history of hypertension Social History Smoking Status: Current every day smoker tobacco type: cigarettes packs per day: 1 alcohol intake: current substance use type: denies use current occupational status: employed Travel in the last 8 weeks: None household members: spouse housing: house marital status: education level: college current occupational exposures/hazards: Yes caffeine: Yes special katelynn needs: No agree to transfusion: No do you feel safe at home: Yes victim of physical abuse: No victim of emotional abuse: No victim of sexual abuse: No would you like helpful sources: No ROS Obtained: Yes All systems reviewed & no additional complaints except as documented Constitutional Constitutional: Reports poor appetite Eyes Eyes: Reports system reviewed and no additional complaints, except as documented ENT Ears, Nose, Mouth, and Throat: Reports as per HPI Cardiovascular Cardiovascular: Reports system reviewed and no additional complaints, except as documented and Denies chest pain Respiratory Respiratory: Denies shortness of breath, Denies chest congestion, Reports cough, Denies stridor and Denies wheezing Gastrointestinal Gastrointestingal: Reports system reviewed and no additional complaints, except as documented; Denies abdominal pain, diarrhea or vomiting Musculoskeletal Musculoskeletal: Reports system reviewed and no additional complaints, except as documented and Denies arthralgias Integumentary/Breasts Skin/Breast: Reports system reviewed and no additional complaints, except as documented and Denies rash Neurologic Neurologic: Denies paresthesias Allergic/Immunologic Allergic/Immunologic: Denies wheezing Physical Exam General General appearance: alert and in no apparent distress Eye Eye exam: Present normal appearance, PERRL and EOMI ENT ENT exam: Present mucous membranes moist and normal external ear exam Expanded ENT Exam External ear exam: Present normal external inspection TM/Canal exam: Bilateral TM: erythema and bulging Nose exam: Absent sinus tenderness Nasal speculum exam: Bilateral: normal Mouth exam: Present normal external inspection; Absent drooling Teeth exam: Present normal inspection Throat exam: Present tonsillar erythema and tonsillomegaly Neck Neck exam: Present normal inspection, full ROM and trachea midline; Absent tenderness, lymphadenopathy or thyromegaly Chest Chest inspection: Present normal inspection and symmetric chest wall rise; Absent tenderness or rash Respiratory Respiratory exam: Present normal lung sounds bilaterally; Absent respiratory distress, wheezes, stridor or accessory muscle use Cardiovascular Cardiovascular exam: Present regular rate, normal rhythm and normal heart sounds Abdominal Exam Abdominal exam: Present soft; Absent distention, tenderness, guarding, rebound or rigidity Extremities Exam Extremities exam: Present normal inspection, full ROM and normal capillary refill; Absent tenderness or calf tenderness Back Exam Back exam: Present normal inspection and full ROM; Absent tenderness Neurological Exam Neurological exam: Present alert and oriented X3 Psychiatric Psychiatric exam: Present normal affect and normal mood Skin Skin exam: Present warm, dry, intact and normal color Lymphatic Lymphatic Findings: no adenopathy Medical Decision Making Medical Records Medical records reviewed: No I reviewed the patient's medical records. Gagan Inquiry Pt receiving controlled substance: No Vital Signs: 03/24/23 14:40 Temperature 98.4 F Temperature Source Oral Pulse Rate [Right Radial] 71 Respiratory Rate 21 Blood Pressure [Right Arm] 141/86 H Blood Pressure Mean [Right Arm] 104 Blood Pressure Source [Right Arm] Automatic Cuff Blood Pressure Position [Right Arm] Sitting 02 Sat by Pulse Oximetry 97 Oxygen Delivery Method Room Air
[2023-03-24 15:18] VITALS: BP 141/86; PULSE 71; RESP 21; TEMP 36.9; O2SAT 97
== END 2023-03-24 15:18 | disposition home or self-care (01) ==
PROVIDERS: Emergency Provider Nurse Practitioner Family; PCP Internal Medicine Adolescent Medicine
DX: J01.90 Acute sinusitis, unspecified (principal); R09.81 Nasal congestion; R07.0 Pain in throat; I10 Essential (primary) hypertension; F17.210 Nicotine dependence, cigarettes, uncomplicated; R05.9 Cough, unspecified
CPT/HCPCS: 99212; 99214; G0463

== ENCOUNTER 2023-06-27 06:41 | Outpatient (CLI) | payer BC, OTHER, SELFPAY ==
[2023-06-27 07:37] LABS: Basophils # 0.1 K/mm3 (0-0.2); Eosinophils # 0.3 K/mm3 (0.0-0.4); Eosinophils % 3.6 % (0.1-12.0); Hematocrit 41.5 % (42.0-52.0); Hemoglobin 13.3 g/dL (14.1-18.0); Lymphocytes # 2.4 K/mm3 (0.7-4.5); Lymphocytes % 33.9 % (10-50); Mean Corpuscular HGB Conc 32.1 g/dL (31.8-35.4); Mean Corpuscular Hemoglobin 30.4 pg (27.0-31.2); Mean Corpuscular Volume 94.9 fl (80-94); Mean Platelet Volume 7.5 fl (7.4-10.4); Monocytes # 0.8 K/mm3 (0.1-1.0); Monocytes % 11.2 % (1.7-9.3); Neutrophils # 3.6 K/mm3 (1.8-7.8); Neutrophils % 50.4 % (37.0-80.0); Platelet Count 325 K/mm3 (142-424); Red Blood Count 4.37 M/mm3 (4.60-6.20); Red Cell Distribution Width 13.5 % (11.5-17.5); White Blood Count 7.1 K/mm3 (4.8-10.8)
[2023-06-27 08:59] LABS: Alanine Aminotransferase 21 U/L (12-78); Albumin Level 4.3 g/dl (3.5-5.0); Albumin/Globulin Ratio 1.4 (1.1-1.8); Alkaline Phosphatase 60 U/L (38-126); Anion Gap 9.9 mEq/L (5-15); Aspartate Amino Transferase 33 U/L (17-59); Bilirubin,Total 0.4 mg/dl (0.2-1.3); Blood Urea Nitrogen 14 mg/dl (9-20); Calcium 9.7 mg/dl (8.4-10.2); Carbon Dioxide 29 mmol/L (22.0-30.0); Chloride 103 mmol/L (98-107); Chol/HDL Ratio 3.3 (1-3.5); Cholesterol 187 mg/dl (140-200); Estimated Glomerular Filt Rate 114 ml/min (>60); GFR (African American) 138 ML/MIN (>60); Globulin 3.1 g/dL (1.3-3.2); Glucose 96 mg/dl (74-100); HDL Cholesterol 56 mg/dl (40-60); Potassium 4.9 mmoL/L (3.5-5.1); Sodium 137 mmol/L (136-145); Total Protein,Serum 7.4 g/dl (6.3-8.2); Triglycerides 103 mg/dl (30-150); VLDL Cholesterol 21 mg/dL (0-40)
[2023-06-27 09:10] LABS: Direct LDL Cholesterol 97.57 mg/dL (100-129)
[2023-06-27 09:29] LABS: Prostate Specific Ag, Diagnost 4.39 ng/ml (0.0-4.0)
== END 2023-06-27 23:59 | disposition home or self-care (01) ==
LOC: LAB 06:42
PROVIDERS: PCP Internal Medicine Adolescent Medicine; Visit Provider Internal Medicine Adolescent Medicine
DX: C61 Malignant neoplasm of prostate (principal); L40.9 Psoriasis, unspecified; E78.5 Hyperlipidemia, unspecified
CPT/HCPCS: 36415; 80053; 80061; 84153; 85025

== ENCOUNTER 2023-07-11 06:42 | Outpatient (CLI) | payer BC, OTHER, SELFPAY ==
--- NOTE | 2023-07-11 06:48 | CT_ITS ---
FINAL REPORT TECHNIQUE: Axial CT images were performed from the lung apices through the upper abdomen. Coronal reformats were submitted. This study was performed with techniques to keep radiation doses as low as reasonably achievable (ALARA). Individualized dose reduction techniques using automated exposure control or adjustment of mA and/or kV according to the patient's size were employed. CLINICAL HISTORY: PULMONARY NODE..smoker COMPARISON: 02/28/2022 FINDINGS: There is wall thickening of the mid and distal esophagus which is nonspecific but favor inflammatory. Small axillary nodes are identified. There are small mediastinal nodes. Severe left coronary artery calcification is identified. Heart size is normal. There is no pericardial or pleural effusion. Limited images of the upper abdomen are unremarkable. There is a nodule in the lateral right lower lobe measuring 5 mm which is stable. Finding is best seen on image 36. No new mass or nodule is identified. IMPRESSION: Wall thickening of the mid and distal esophagus, stable. This could be further evaluated with upper endoscopy. Stable right lower lobe nodule. Reviewed, Interpreted and Dictated by Carlos Lamas III, MD Transcribed by No Gross Authenticated and [facility]
== END 2023-07-11 23:59 | disposition home or self-care (01) ==
LOC: RAD 06:42
PROVIDERS: PCP Internal Medicine Adolescent Medicine; Visit Provider Internal Medicine Adolescent Medicine
DX: R91.1 Solitary pulmonary nodule (principal)
CPT/HCPCS: 71250

== ENCOUNTER 2024-01-09 06:35 | Outpatient (CLI) | payer BC, OTHER, SELFPAY ==
[2024-01-09 07:20] LABS: Basophils # 0.1 K/mm3 (0-0.2); Basophils % 1.2 % (0.1-2.0); Eosinophils # 0.3 K/mm3 (0.0-0.4); Eosinophils % 4.2 % (0.1-12.0); Hematocrit 39.3 % (42.0-52.0); Hemoglobin 13.3 g/dL (14.1-18.0); Lymphocytes # 2.3 K/mm3 (0.7-4.5); Lymphocytes % 35.7 % (10-50); Mean Corpuscular HGB Conc 33.9 g/dL (31.8-35.4); Mean Corpuscular Hemoglobin 30.6 pg (27.0-31.2); Mean Corpuscular Volume 90.2 fl (80-94); Mean Platelet Volume 7.1 fl (7.4-10.4); Monocytes # 0.6 K/mm3 (0.1-1.0); Monocytes % 9.8 % (1.7-9.3); Neutrophils # 3.2 K/mm3 (1.8-7.8); Neutrophils % 49.2 % (37.0-80.0); Platelet Count 303 K/mm3 (142-424); Red Blood Count 4.35 M/mm3 (4.60-6.20); Red Cell Distribution Width 13.2 % (11.5-17.5); White Blood Count 6.4 K/mm3 (4.8-10.8)
[2024-01-09 07:45] LABS: Albumin Level 4.5 g/dl (3.5-5.0); Carbon Dioxide 25 mmol/L (22.0-30.0)
[2024-01-09 08:16] LABS: Prostate Specific Ag, Diagnost 4.49 ng/ml (0.0-4.0)
[2024-01-09 08:34] LABS: Alanine Aminotransferase 35 U/L (12-78); Albumin/Globulin Ratio 1.5 (1.1-1.8); Alkaline Phosphatase 68 U/L (38-126); Aspartate Amino Transferase 41 U/L (17-59); Bilirubin,Total 0.6 mg/dl (0.2-1.3); Blood Urea Nitrogen 13 mg/dl (9-20); Calcium 9.2 mg/dl (8.4-10.2); Chloride 99 mmol/L (98-107); Chol/HDL Ratio 2.1 (1-3.5); Cholesterol 122 mg/dl (140-200); Estimated Glomerular Filt Rate 114 ml/min (>60); GFR (African American) 138 ML/MIN (>60); Glucose 89 mg/dl (74-100); HDL Cholesterol 58 mg/dl (40-60); Sodium 132 mmol/L (136-145); Total Protein,Serum 7.5 g/dl (6.3-8.2); Triglycerides 54 mg/dl (30-150); VLDL Cholesterol 11 mg/dL (0-40)
[2024-01-09 08:45] LABS: Direct LDL Cholesterol 53.11 mg/dL (100-129)
== END 2024-01-09 23:59 | disposition home or self-care (01) ==
LOC: LAB 06:39
PROVIDERS: PCP Internal Medicine Adolescent Medicine; Visit Provider Internal Medicine Adolescent Medicine
DX: C61 Malignant neoplasm of prostate (principal); E78.5 Hyperlipidemia, unspecified; I10 Essential (primary) hypertension; K21.9 Gastro-esophageal reflux disease without esophagitis; Z72.0 Tobacco use
CPT/HCPCS: 36415; 80053; 80061; 84153; 85025

== ENCOUNTER 2024-06-22 06:47 | Outpatient (CLI) | payer BC, OTHER, SELFPAY ==
[2024-06-22 07:49] LABS: Basophils % 0.5 % (0.1-2.0); Eosinophils # 0.2 Kmm3 (0.0-0.4); Hematocrit 39.7 % (42.0-52.0); Hemoglobin 13.5 g/dL (14.1-18.0); Lymphocytes # 2.7 K/mm3 (0.7-4.5); Lymphocytes % 33.6 % (10-50); Mean Corpuscular Hemoglobin 30.5 pg (27.0-31.2); Mean Corpuscular Volume 89.6 fl (80-94); Monocytes # 0.9 K/mm3 (0.1-1.0); Monocytes % 10.7 % (1.7-9.3); Neutrophils # 4.2 K/mm3 (1.8-7.8); Neutrophils % 51.6 % (37.0-80.0); Nucleated Red Blood Cells # 0 10^3/uL; Nucleated Red Blood Cells % 0 %; Platelet Count 299 K/mm3 (142-424); Red Blood Count 4.43 M/mm3 (4.60-6.20); Red Cell Distribution Width 12.3 % (11.5-17.5); Red Cell Distribution Width-SD 40.5 fL; White Blood Count 8.1 K/mm3 (4.8-10.8)
[2024-06-22 08:07] LABS: Albumin Level 4.6 g/dl (3.5-5.0); Chloride 98 mmol/L (98-107); Potassium 4.4 mmoL/L (3.5-5.1); Sodium 132 mmol/L (136-145)
[2024-06-22 08:10] LABS: Alanine Aminotransferase 34 U/L (12-78); Albumin/Globulin Ratio 1.4 (1.1-1.8); Alkaline Phosphatase 72 U/L (38-126); Anion Gap 12.4 mEq/L (5-15); Aspartate Amino Transferase 45 U/L (17-59); Bilirubin,Total 0.6 mg/dl (0.2-1.3); Blood Urea Nitrogen 8 mg/dl (9-20); Carbon Dioxide 26 mmol/L (22.0-30.0); Cholesterol 140 mg/dl (140-200); Estimated Glomerular Filt Rate 98 ml/min (>60); GFR (African American) 118 ML/MIN (>60); Globulin 3.2 g/dL (1.3-3.2); Total Protein,Serum 7.8 g/dl (6.3-8.2); Triglycerides 119 mg/dl (30-150); VLDL Cholesterol 24 mg/dL (0-40)
[2024-06-22 08:11] LABS: Calcium 9.5 mg/dl (8.4-10.2); Chol/HDL Ratio 2.5 (1-3.5); Glucose 92 mg/dl (74-100); HDL Cholesterol 57 mg/dl (40-60)
[2024-06-22 09:35] LABS: Direct LDL Cholesterol 52.77 mg/dL (100-129)
[2024-06-22 09:56] LABS: Prostate Specific Ag Screen 4.3 ng/ml (0.0-4.0)
== END 2024-06-22 23:59 | disposition home or self-care (01) ==
LOC: LAB 06:49
PROVIDERS: PCP Internal Medicine Adolescent Medicine; Visit Provider Internal Medicine Adolescent Medicine
DX: C61 Malignant neoplasm of prostate (principal); E78.5 Hyperlipidemia, unspecified
CPT/HCPCS: 36415; 80053; 80061; 85025; G0103

== ENCOUNTER 2024-12-28 06:55 | Outpatient (CLI) | payer BC, OTHER, SELFPAY ==
--- OUTSIDE RECORDS SUMMARY | 2024-12-28 06:58 | XMS_ITS | Encounter Summary ---
Author Organization [facility] Address [address] [place] [address] Care Team Providers Care Field Care Coordinator Name Role Phone William Lecah MD Primary Care Provider [phone] Encounter Details Date Type Department Care Team (Late st Contact Info) Description 07/30/2023 Lab Requisition [facility] [address] [place] [address] Mariana Kraft MD [address] [place] [address] Malignant neoplasm of prostate (CMS/HCC) Social History Tobacco Use Types Packs/Day Years Used Date Smoking Tobacco: Every Day Cigarettes 0.5 51.8 Started: 02/25/1973 Smokeless Tobacco: Never Alcohol Use Standard Drinks/Week Comments Yes 12 (1 standard drink = 0.6 oz pu re alcohol) 4-5 beers a day PHQ-2 Answer Date Recorded Patient Health Questionnaire-2 Score 0 06/04/2023 Sex and Gender Information Value Date Recorded Sex Assigned at Not on file Legal Sex Male 7:52 PM EDT Gender Identity Not on file Sexual Orientation Not on file documented as of this encounter Plan of Treatment Upcoming Encounters Date Type Department Care Team (Late st Contact Info) Description 05/31/2025 7:30 AM EDT Appointment [facility] [address] [place] [address] 07/20/2025 8:45 AM EDT Office [facility] [place] [facility] [address] [place] [address] William Pete MD [address] [place] [address] documented as of this encounter Procedures Procedure Name Priority Date/Time Associated Diagnosis Comments AP MISCELLANEOUS LAB TEST (SO) Routine 07/30/2023 12:00 AM EDT Malignant neoplasm of prostate (CMS/HCC) documented in this encounter Results * - AP Miscellaneous Test (07/30/2023 12:00 AM EDT) Test name Decipher Veracyte 09/04/2023 9:32 AM EDT [facility] Comment:[id number] F1 Test Result see scan 09/04/2023 9:32 AM EDT [facility] See Scanned Result 09/04/2023 9:32 AM EDT [facility] Tissue Structure of left forearm / Unknown 07/30/2023 07/30/2023 2:02 PM EDT us Mariana Kraft MD LAB REF LAB BLOOD AND FLUID ORD Final Result [facility] [address] [place] [address] documented in this encounter Visit Diagnoses Diagnosis Malignant neoplasm of prostate (CMS/HCC) Malignant neoplasm of prostate documented in this encounter Additional Health Concerns Assessment Noted Time A fall risk assessment has been complete d for the patient 06/04/2023 8:11 AM EDT A Body Mass Index follow-up plan has been documented for the patient 06/04/2023 5:23 PM EDT documented as of this encounter Care Teams Field Care Coordinator Relationship Specialty Start Date End Date William Leach MD [address] [place] [address] PCP - General 07/08/20 documented as of this encounter
--- OUTSIDE RECORDS SUMMARY | 2024-12-28 06:58 | XMS_ITS | Clinical Summary ---
Author Organization [facility] Address [address] [place] [address] Care Team Providers Care Scallop Shucker Name Role Phone William Leach MD Primary Care Provider [phone] Allergies Active Allergy Reactions Criticality Noted Date Comments Penicillins Unknown - Patient st ates they do not know rxn details Low 07/19/2015 Medications lisinopril 10 MG tablet Take 1 tablet (10 mg) by mouth 1 (one) time each day in the evening. Active ASPIRIN 81 MG chewable tabletIndication s:prevention Chew 1 tablet (81 mg) 1 (one) time each day in the evening. Active levoFLOXacin (Levaquin) 500 MG tablet Take 1 tablet PO day prior to procedure, 1 tablet PO day of procedure, 1 tablet PO day after procedure. 3 tablet 03/19/2023 Active rosuvastatin (Crestor) 20 MG tablet Take 1 tablet by mouth daily. 07/01/2024 Active lisinopril 20 MG tablet Take 1 tablet by mouth daily. 06/18/2024 Active Active Problems Problem Noted Date Diagnosed Date Obesity (BMI 35.0-39.9 without comorbidity) 06/26 Family History Medical History Relation Name Comments Cancer Father Carlos Felix Cardiac disorder Father Carlos Felix Conversions - Other Father Carlos Felix Patient 's father is Hearing loss Mother Janel Felix Osteoarthritis Mother Janel Felix Malig Hyperthermia Neg Hx Relation Name Status Comments Father Carlos Felix Mother Janel Felix Alive Social History Tobacco Use Types Packs/Day Years Used Date Smoking Tobacco: Every Day Cigarettes 0.5 51.8 Started: 02/25/1973 Passive Smoke Exposure: Current Smokeless Tobacco: Never Alcohol Use Standard Drinks/Week Comments Yes 12 (1 standard drink = 0.6 oz pu re alcohol) 4-5 beers a day PHQ-2 Answer Date Recorded Patient Health Questionnaire-2 Score 0 07/21/2024 Sex and Gender Information Value Date Recorded Sex Assigned at Not on file Legal Sex Male 7:52 PM EDT Gender Identity Not on file Sexual Orientation Not on file Last Filed Vital Signs Vital Sign Reading Time Taken Comments Blood Pressure 142/93 07/21/2024 8:04 AM EDT Pulse 63 07/21/2024 7:59 AM EDT Temperature 36.7 C (98 F) 07/21/2024 7:59 AM EDT Respiratory Rate 18 07/21/2024 7:59 AM EDT Oxygen Saturation 99% 07/21/2024 7:59 AM EDT Inhaled Oxygen Concentration - - Weight 94 kg (207 lb 3.7 oz) 07/21/2024 7:59 AM EDT Height 162.6 cm (5' 4 ) 07/21/2024 7:59 AM EDT Body Mass Index 35.57 07/21/2024 7:59 AM EDT Plan of Treatment Upcoming Encounters Date Type Department Care Team (Late st Contact Info) Description 05/31/2025 7:30 AM EDT Appointment [facility] [address] [place] [address] 07/20/2025 8:45 AM EDT Office Visit [place] [facility] [address] [place] [address] William Pete MD [address] [place] [address] Health Maintenance Due Date Last Done Comments [facility]-HIV Screening 1960 [facility]-Hepatitis C Screening 1960 [facility]-Infant/Child/Adol SDOH Screenings 1960 [facility]- SDOH Screenings 1978 [facility]-Adult SDOH Screenings 1978 [facility]-DTaP,Tdap,and Td Vaccines (1 - Tdap) 07/10/1979 CT Colonography 2005 Colonoscopy 2005 FIT 2005 FOBT 2005 Sigmoidoscopy 2005 Lung Cancer Screening Shared Decision Making 2010 [facility]-Lung Cancer Screening 2010 [facility]-Pneumococcal Vaccine: 50+ Years (2 of 2 - PCV) 01/04/2022 01/04/2021 [id number] Vaccine ( season) 2024 12/12/2022, 11/08/2021, 05/28/2021, Additional history exists [facility]-Influenza Vaccine (#1) 2024 [facility]-Depression Screening 07/21/2025 07/21/2024 FIT-DNA 01/30/2027 01/31/2024, 01/16/2021 [facility]-Colorectal Cancer Screening 01/30/2027 [facility]-Hepatitis A Vaccines Aged Out 07/16/2018, 12/26 No longer eligible based on patient's age to complete this topic [facility]-Zoster Vaccines Completed 01/06/2020, 0 [facility]-RSV Vaccine: 60+ Years or Completed 01/10/2023 [facility]-Obesity Intervention Completed 025, 06/04/2023, 06/04/2023, Additional history exists HPV Vaccines Aged Out No longer eligi ble based on patient's age to complete this topic [facility]-HIB Vaccines Aged Out No longer e ligible based on patient's age to complete this topic [facility]-IPV Vaccines Aged Out No longer e ligible based on patient's age to complete this topic [facility]-Rotavirus Vaccines Aged Out No lo nger eligible based on patient's age to complete this topic Insurance [employer] Care Teams Scallop Shucker Relationship Specialty Start Date End Date William Leach MD [address] [place] [address] PCP - General 07/08/20
--- OUTSIDE RECORDS SUMMARY | 2024-12-28 06:58 | XMS_ITS | Encounter Summary ---
Author Organization [facility] Address [address] [place] [address] Care Team Providers Care Fellmongery Worker Name Role Phone William Leach MD Primary Care Provider [phone] Encounter Details Date Type Department Care Team (Late st Contact Info) Description 01/10/2023 Community [facility] [address] [place] [address] William Leach MD [address] [place] [address] Prostate cancer (CMS/HCC) (Primary Dx) Social History Tobacco Use Types Packs/Day Years Used Date Smoking Tobacco: Every Day Alcohol Use Standard Drinks/Week Comments Yes 0 (1 standard drink = 0.6 oz pur e alcohol) Sex and Gender Information Value Date Recorded Sex Assigned at Not on file Legal Sex Male 7:52 PM EDT Gender Identity Not on file Sexual Orientation Not on file documented as of this encounter Plan of Treatment Upcoming Encounters Date Type Department Care Team (Late st Contact Info) Description 05/31/2025 7:30 AM EDT Appointment [facility] [address] [place] [phone] 07/20/2025 8:45 AM EDT Office Visit [place] [facility] [address] [place] [address] William Pete MD [address] [place] [phone] documented as of this encounter Visit Diagnoses Diagnosis Prostate cancer (CMS/HCC)- Primary Malignant neoplasm of prostate documented in this encounter Care Teams Fellmongery Worker Relationship Specialty Start Date End Date William Leach MD [address] [place] [address] PCP - General 07/08/20 documented as of this encounter
--- OUTSIDE RECORDS SUMMARY | 2024-12-28 06:58 | XMS_ITS | Clinical Summary ---
Author Organization [facility] Address [address] [place] [address] Care Team Providers Care Traffic Monitor Specialist Name Role Phone Provider, No Known Primary Care Provider Unavail able Immunizations Immunization Administration Dates Next Due COVID-19 (PFIZER) Purple Cap Monovalent 04/13/19 21,03/24/2020 Social History Tobacco Use Types Packs/Day Years Used Date Smoking Tobacco: Never Assessed Abuse Screen Answer Date Recorded Unsafe at Home or Work/School Not on file Feels Threatened by Someone? Not on file 01/2023 Does Anyone Keep You from Co ntacting Others or Doint Things Outside the Home? Not on file 12/06/2022 Physical Sign of Abuse Present Not on file 1 Housing Stability Answer Date Recorded Current Living Arrangements Not on file 11/25 Potentially Unsafe Housing Conditions Not on jeremy e 12/06/2022 Family and Community Support Answer Raji e Recorded Help with Day-to-Day Activities Not on file 12/06/2022 Lonely or Isolated Not on file 12/06/2022 Employment Answer Date Recorded Do you want help finding or keeping work or a saige b? Not on file 12/06/2022 Disabilities Answer Date Recorded Concentrating, Remembering, or Making Decisions Difficulty Not on file 12/06/2022 Doing Errands Independently Difficulty Not on fi le 12/06/2022 Education Answer Date Recorded Help with school or training? Not on file Preferred Language Not on file 12/06/2022 Sex and Gender Information Value Date Recorded Sex Assigned at Not on file Legal Sex Male 8:59 AM EST Gender Identity Not on file Sexual Orientation Not on file Plan of Treatment Health Maintenance Due Date Last Done Comments ANNUAL PHYSICAL 1960 HEPATITIS C SCREENING 1960 TDAP/TD VACCINES (1 - Tdap) 07/10/1979 COLOGUARD 2005 COLON CANCER SCREENING 5 YEA R SIGMOIDOSCOPY 2005 COLONOSCOPY [address] CANCER SCREENING [address] COLONOGRAPHY 2005 FECAL OCCULT BLOOD TEST 2005 FIT Testing (1 year) 2005 Pneumococcal Vaccine 50+ (1 of 1 - PCV) 2010 INFLUENZA VACCINE 09/25/2024 ZOSTER VACCINE Completed 01/06/2020, 07/08/2019 Insurance [facility] PPO Care Teams Traffic Monitor Specialist Relationship Specialty Start Date End Date Provider, No Known [facility] [address] PCP - General 03/24/20
[2024-12-28 07:52] LABS: Hematocrit 41.2 % (42.0-52.0); Hemoglobin 13.5 g/dL (14.1-18.0); Immature Granulocytes % 0.3 %; Mean Corpuscular HGB Conc 32.8 g/dL (31.8-35.4); Mean Corpuscular Hemoglobin 29.8 pg (27.0-31.2); Mean Corpuscular Volume 90.9 fl (80-94); Nucleated Red Blood Cells % 0 %; Platelet Count 265 K/mm3 (142-424); Red Blood Count 4.53 M/mm3 (4.60-6.20); Red Cell Distribution Width-SD 41.7 fL; White Blood Count 6.9 K/mm3 (4.8-10.8)
[2024-12-28 08:14] LABS: Alanine Aminotransferase 35 U/L (12-78); Albumin Level 4.6 g/dl (3.5-5.0); Albumin/Globulin Ratio 1.3 (1.1-1.8); Alkaline Phosphatase 71 U/L (38-126); Anion Gap 12.4 mEq/L (5-15); Aspartate Amino Transferase 42 U/L (17-59); Bilirubin,Total 0.5 mg/dl (0.2-1.3); Blood Urea Nitrogen 13 mg/dl (9-20); Calcium 9.2 mg/dl (8.4-10.2); Carbon Dioxide 23 mmol/L (22.0-30.0); Chloride 103 mmol/L (98-107); Cholesterol 122 mg/dl (140-200); Creatinine,Serum 0.80 mg/dl (0.66-1.25); Estimated Glomerular Filt Rate 97 ml/min (>60); GFR (African American) 118 ML/MIN (>60); Globulin 3.5 g/dL (1.3-3.2); Glucose 98 mg/dl (74-100); HDL Cholesterol 61 mg/dl (40-60); Potassium 4.4 mmoL/L (3.5-5.1); Sodium 134 mmol/L (136-145); Total Protein,Serum 8.1 g/dl (6.3-8.2); Triglycerides 49 mg/dl (30-150)
[2024-12-28 08:44] LABS: Prostate Specific Ag, Diagnost 4.67 ng/ml (0.0-4.0)
[2024-12-29 08:12] LABS: PSA, Free 0.45 ng/mL
== END 2024-12-28 23:59 | disposition home or self-care (01) ==
LOC: LAB 06:56
PROVIDERS: PCP Internal Medicine Adolescent Medicine; Visit Provider Internal Medicine Adolescent Medicine
DX: C61 Malignant neoplasm of prostate (principal); E78.5 Hyperlipidemia, unspecified; I10 Essential (primary) hypertension
CPT/HCPCS: 36415; 80053; 80061; 84153; 84154; 85025

== ENCOUNTER 2025-01-08 07:18 | Outpatient (CLI) | payer BC, OTHER, SELFPAY ==
--- NOTE | 2025-01-08 07:19 | CT_ITS ---
FINAL REPORT CLINICAL HISTORY: SCREENING currrent smoker 1/2 pack a day for 20 years dlp 109.4 ctdi 2.90 hx of prostate cancer COMPARISON: CT of the chest 07/11/2023 FINDINGS: CT CHEST LOW DOSE SCREENING HISTORY: Screening exam for lung cancer. 64-year-old male, current smoker, 19-cnzc-lubn history DOSE: CTDI vol: 2.90 mGy, DLP: 109.94 mGy*cm TECHNIQUE: Axial CT without IV contrast administration using low dose protocol. This study was performed with techniques to keep radiation doses as low as reasonably achievable, (ALARA). Individualized dose reduction techniques using automated exposure control or adjustment of mA and/or kV according to the patient's size were employed. No acute lung disease is present. There is a new left lower lobe nodule, 6 mm in size, best seen on image #45 of series 4. There is a subpleural nodule noted in the right lower lobe, 4 mm in size, stable, best seen on image #43 of series 4. The lungs are otherwise clear. No pleural or pericardial effusion is seen. No adenopathy or mass lesion is present. A small hiatal hernia is present, and there is mild nonspecific esophageal wall thickening, which was also present on the prior CT of the chest 07/11/2023. IMPRESSION: Stable 4 mm subpleural right lower lobe nodule, with a new 6 mm left lower lobe nodule. LUNG RADS CATEGORY 3 RECOMMENDATION: 6 month LDCT follow up Reviewed, Interpreted and Dictated by Vahid Quijano MD Transcribed by Brti Rebolledo Authenticated and [facility]
--- OUTSIDE RECORDS SUMMARY | 2025-01-08 07:20 | XMS_ITS | Encounter Summary ---
Author Organization [facility] Address [address] [place] [address] Care Team Providers Care Retail Manager Name Role Phone William Leach MD Primary Care Provider [phone] Encounter Details Date Type Department Care Team (Late st Contact Info) Description 01/10/2023 Community [facility] [address] [place] [address] William Leach MD [address] [place] [address] Prostate cancer (CMS/HCC) (Primary Dx) Social History [...] EDT Appointment [facility] [address] [place] [id number] 07/20/2025 8:45 AM EDT Office Visit [place] [facility] [address] [place] [address] William Pete MD [address] [place] [id number] documented as of this encounter Visit Diagnoses Diagnosis Prostate cancer (CMS/HCC)- Primary Malignant neoplasm of prostate documented in this encounter Care Teams Retail Manager Relationship Specialty Start Date End Date William Leach MD [address] [place] [address] PCP - General 07/08/20 documented as of this encounter
--- OUTSIDE RECORDS SUMMARY | 2025-01-08 07:20 | XMS_ITS | Clinical Summary ---
Author Organization [facility] yste Address [address] [place] [address] Care Team Providers Care Extermination Supervisor Name Role Phone Provider, No Known Primary [...] 09/25/2024 ZOSTER VACCINE Completed 01/06/2020, 07/08/2019 Insurance [facility] PPO Care Teams Extermination Supervisor Relationship Specialty Start Date End Date Provider, No Known [facility] [place] [address] PCP - General 03/24/20
--- OUTSIDE RECORDS SUMMARY | 2025-01-08 07:20 | XMS_ITS | Encounter Summary ---
Author Organization [facility] Address [address] [place] [address] Care Team Providers Care Senior Care Specialist Name Role Phone William Leach MD Primary Care Provider [phone] Encounter Details Date Type Department Care Team (Late st Contact Info) Description 07/30/2023 Lab Requisition [facility] [address] [place] [address] Mariana Kraft MD [address] [place] [address] Malignant neoplasm of prostate (CMS/HCC) Social History Tobacco Use Types Packs/Day Years Used Date Smoking Tobacco: Every Day Cigarettes 0.5 51.9 Started: 02/25/1973 Smokeless Tobacco: Never Alcohol Use [...] EDT Appointment [facility] [address] [place] [address] 07/20/2025 8:45 AM EDT Office Visit [place] [facility] [address] [place] [address] William Pete MD [address] [place] [address] documented as of this encounter Procedures Procedure Name Priority Date/Time Associated Diagnosis Comments AP MISCELLANEOUS LAB TEST (SO) Routine 07/30/2023 12:00 AM EDT Malignant neoplasm of prostate (CMS/HCC) documented in this encounter Results * - AP Miscellaneous Test (07/30/2023 12:00 AM EDT) Test name Decipher Veracyte 09/04/2023 9:32 AM EDT [facility] Comment:[id number] F1 Test Result see scan 09/04/2023 9:32 AM EDT [facility] See Scanned Result 09/04/2023 9:32 AM EDT [facility] Tissue Structure of left forearm / Unknown 07/30/2023 07/30/2023 2:02 PM EDT us Mariana Kraft MD LAB REF LAB BLOOD AND FLUID ORD Final Result [facility] [address] [place] [address] documented in this encounter Visit Diagnoses Diagnosis [...] documented as of this encounter Care Teams Senior Care Specialist Relationship Specialty Start Date End Date William Leach MD [address] [place] [address] PCP - General 07/08/20 documented as of this encounter
--- OUTSIDE RECORDS SUMMARY | 2025-01-08 07:20 | XMS_ITS | Clinical Summary ---
Author Organization [facility] Address [address] [place] [address] Care Team Providers Care Ornamental Machine Operator Name Role Phone William Leach MD Primary Care Provider [phone] Allergies Active Allergy Reactions Criticality Noted Date [...] Every Day Cigarettes 0.5 51.9 Started: 02/25/1973 Passive Smoke Exposure: Current Smokeless [...] EDT Appointment [facility] [address] [place] [address] 07/20/2025 8:45 AM EDT Office Visit [place] [facility] [address] [place] [address] William Pete MD [address] [place] [address] Health Maintenance Due Date Last Done Comments [...] (2 of 2 - PCV) 01/04/2022 01/04/2021 [id number] Vaccine ( season) 2024 12/12/2022, 11/08/2021, 05/28/2021, [...] complete this topic Insurance [employer] Care Teams Ornamental Machine Operator Relationship Specialty Start Date End Date William Leach MD [address] [place] [address] PCP - General 07/08/20
== END 2025-01-08 23:59 | disposition home or self-care (01) ==
LOC: RAD 07:18
PROVIDERS: PCP Internal Medicine Adolescent Medicine; Visit Provider Internal Medicine Adolescent Medicine
DX: Z12.2 Encounter for screening for malignant neoplasm of respiratory organs (principal); F17.210 Nicotine dependence, cigarettes, uncomplicated; Z85.46 Personal history of malignant neoplasm of prostate; R91.8 Other nonspecific abnormal finding of lung field; K44.9 Diaphragmatic hernia without obstruction or gangrene; K22.9 Disease of esophagus, unspecified
CPT/HCPCS: 71271

== ENCOUNTER 2025-01-19 08:00 | Outpatient (RCR) | payer BC, OTHER, SELFPAY ==
--- NOTE | 2025-01-05 15:50 | HMH.OTOPEV ---
OT Evaluation Rehab OT Outpatient Eval Start: 01/05/25 14:58 Freq: Status: Active Protocol: Document 01/05/25 15:28 GIUSEPPE (Rec: 01/05/25 15:50 GIUSEPPE [id number]) E-signed By Elham Red, OT Outpatient Therapy Subjective History Subjective History Pt is a 64 yr old male who presents to initial OT eval due to L shoulder concerns. Pt reported that the injury occurred approximately 10 weeks ago during Labor Day weekend when pt jumped off side of truck while holding onto truck with L shoulder/arm and pt reported they hyperextended the shoulder. pt reported they discussed this with PCP and PCP reported to pt that it sounded like a RTC injury. Pt reported they have not had an MRI or X-ray. Pt reported the initial pain was 8/10, however now pt only has pain intermittently and at worst pain is 4/10. Pt reported they are R hand dominant and works as an audio engineer at [employer]. Pt reported they mainly have pain at night when attempting to sleep. Upon further assessment of L shoulder, pt presents with limited ROM for IR at L shoulder and while ER is within functional limits, ER appears slightly limited as well. Pt presented with no palpation tenderness and no remarkable posture. Measurements 01/05/25 Eval: ROM of L shoulder- Flex: 180, Abd: 170, Er: 70, IR: 40 Pain at worst: 4/10 MMT 3-/5 for IR Quick Dash Activities: 15 Quick Dash Work: 4 ST. Pt will increase L shoulder abduction to 175 degrees to complete upper body dressing independently ~50% of the time. 2. Pt will increase L shoulder ER/IR to 75 degrees (ER) and 50 degrees (IR) in order to complete lower body dressing (putting on and taking off belt) independently ~50% of the time. 3. Pt will increase strength to 3+/5 throughout left shoulder for IR in order to complete heavier household tasks (laundry, mopping, vacuuming) independently ~50% of the time. 4. Pt will verbalize decreased pain levels at worst in L shoulder to a 3/10 in order to complete daily ADLs independently ~50% of the time. 5. Pt will demonstrate improved endurance by completing left shoulder exercises for ~20 minutes prior to rest break in order to increase his tolerance for daily work activities. 6. Pt will demonstrate independence with HEP of AAROM exercises to increase overall functional use of left shoulder in daily activities ~75% of the time. 7. Pt will report QuickDash Activities score 13 or below to demo improved functional performance in ADLs and IADLs ~75% of time. LT. Pt will increase L shoulder abduction to 180 degrees to complete upper body dressing independently ~50% of the time. 2. Pt will increase L shoulder ER/IR to 80 degrees (ER) and 60 degrees (IR) in order to complete lower body dressing (putting on and taking off belt) independently ~50% of the time. 3. Pt will increase strength to 4+/5 throughout left shoulder for ER/IR in order to complete heavier household tasks (laundry, mopping, vacuuming) independently ~50% of the time. 4. Pt will verbalize decreased pain levels at worst in L shoulder to a 2/10 in order to complete daily ADLs independently ~50% of the time. 5. Pt will demonstrate improved endurance by completing left shoulder exercises for ~25 minutes prior to rest break in order to increase his tolerance for daily work activities. 6. Pt will demonstrate independence with advanced strengthening exercises to increase overall functional use of left shoulder in daily activities ~75% of the time. 7. Pt will report QuickDash Activities score 12 or below to demo improved functional performance in ADLs and IADLs ~75% of time. New diagnosis of No cancer in past 12 months? Chief Complaint Pain,Weakness,Decreased Coordination Symptom Type Throb Symptoms Relieved By Activity,Shaking Symptoms Aggravated Supine By Prior Functional None Limitations Current Functional Lifting,Dressing,Sleeping Limitations Symptom Description Intermittent,Pain at Rest Level of pain today 0 (0-10) Pain scale - at its 0 best (0-10) Pain scale - at its 4 worst (0-10) Shoulder/Elbow Eval Shoulder Objective Measurements Shoulder ROM Left Shoulder Abduction 170 Active Range of Motion (degrees) Shoulder Flexion 180 Active Range of Motion (degrees) Query Text: Shoulder External 70 Rotation Active Range of Motion ( degrees) Shoulder Internal 40 Rotation Active Range of Motion ( degrees) full ROM shoulder left exam standard Shoulder MMT Shoulder Abduction 4 Good Strength Grade Shoulder Flexion 4 Good Strength Grade Shoulder External 3+ Fair+ Rotation Strength Grade Shoulder Internal 3- Fair- Rotation Strength Grade Shoulder Strength Sitting Patient Testing Position Elbow Objective Measurements QuickDASH Activities Please rate your ability to do the following activities in the last week by selecting the number below the appropriate response. 1. Open a tight or No difficulty new jar. 2. Do heavy No difficulty nuclear design engineer (e. g., wash swanson, floors). 3. Carry a shopping No difficulty bag or briefcase. 4. Wash your back. Moderate difficulty 5. Use a knife to No difficulty cut food. 6. Recreational No difficulty activities in which you take some force or impact through your arm, shoulder, or hand (e.g., golf, hammering, tennis, etc.). 7. During the past Not at all week, to what extent has your arm, shoulder or hand problem interfered with your normal social activities with family, friends , neighbors or groups? 8. During the past Not limited at all week, were you limited in your work or other regular daily activites as a result of your arm, shoulder or hand problem? 9. Arm, shoulder or Mild hand pain. 10. Tingling (pins None and needles) in your arm, shoulder or hand. 11. During the past Mild difficulty week, how much difficulty have you had sleeping because of the pain in your arm, shoulder or hand? Quick DASH 15 Work Module (optional) The following questions ask about the impact of your arm, shoulder or hand problem on your ability to work (including homemaking if that is your main work role). Please indicate what Desk/Computer your job/work is: Do you work? Yes 1. Using your usual No difficulty technique for your work? 2. Doing your usual No difficulty work because of arm, shoulder or hand pain? 3. Doing your work No difficulty as well as you would like? 4. Spending your No difficulty usual amount of time doing your work? Quick Dash Work 4 Module Score OT Patient Goals OT Patient Goals OT Short Term 1. Pt will increase L shoulder abduction to 175 degrees Patient Goals to complete upper body dressing independently ~50% of the time. 2. Pt will increase L shoulder ER/IR to 75 degrees (ER) and 50 degrees (IR) in order to complete lower body dressing (putting on and taking off belt) independently ~50% of the time. 3. Pt will increase strength to 3+/5 throughout left shoulder for IR in order to complete heavier household tasks (laundry, mopping, vacuuming) independently ~50% of the time. 4. Pt will verbalize decreased pain levels at worst in L shoulder to a 3/10 in order to complete daily ADLs independently ~50% of the time. 5. Pt will demonstrate improved endurance by completing left shoulder exercises for ~20 minutes prior to rest break in order to increase his tolerance for daily work activities. 6. Pt will demonstrate independence with HEP of AAROM exercises to increase overall functional use of left shoulder in daily activities ~75% of the time. 7. Pt will report QuickDash Activities score 13 or below to demo improved functional performance in ADLs and IADLs ~75% of time. OT Custodial Patient 1. Pt will increase L shoulder abduction to 180 degrees Goals to complete upper body dressing independently ~50% of the time. 2. Pt will increase L shoulder ER/IR to 80 degrees (ER) and 60 degrees (IR) in order to complete lower body dressing (putting on and taking off belt) independently ~50% of the time. 3. Pt will increase strength to 4+/5 throughout left shoulder for ER/IR in order to complete heavier household tasks (laundry, mopping, vacuuming) independently ~50% of the time. 4. Pt will verbalize decreased pain levels at worst in L shoulder to a 2/10 in order to complete daily ADLs independently ~50% of the time. 5. Pt will demonstrate improved endurance by completing left shoulder exercises for ~25 minutes prior to rest break in order to increase his tolerance for daily work activities. 6. Pt will demonstrate independence with advanced strengthening exercises to increase overall functional use of left shoulder in daily activities ~75% of the time. 7. Pt will report QuickDash Activities score 12 or below to demo improved functional performance in ADLs and IADLs ~75% of time. OT Outpatient Assessment Impairments Problems/Impairments Impaired Range of Motion,Impaired Strength,Impaired Endurance,Impaired Lifting,Impaired Dressing,Impaired Shower/Bathing,Subjective C/O Pain Clinical Impression Consistent with Yes Diagnosis Outpatient Therapy Plan of Care Treatment Plan May Include Therapeutic Exercise Yes Including Home Exercise Program Manual Therapy Yes Techniques Neuromuscular Re- Yes education Therapeutic Yes Activities to Return to Previous Functional/Work Level ADL/Self Care Yes Education Thermal Modalities Yes Electrical Yes Stimulation Ultrasound/ Yes Phonophoresis Iontophoresis Yes Parrafin Yes Orthotics/Bracing/ Yes Splinting Group Therapy for Yes Medicare Eval/Re-Eval Yes Frequency Times per week 2 Duration Number of Weeks 6 Addendums This patient is a No candidate for social or vocational rehab ? Patient/Guardian Yes verbally acknowledges understanding of treatment program and consents to further treatment? Patient/Guardian Yes verbally acknowledges understanding of diagnosis, prognosis and goals for treatment? Eval Complexity OT Charge 16875 - Moderate Complexity PHYSICIAN CERTIFICATION: I certify the specified therapy services for Parth Felix are required, authorized, and reviewed every 30 days.
== END 2025-01-19 23:59 | disposition home or self-care (01) ==
LOC: OT 08:00
PROVIDERS: PCP Internal Medicine Adolescent Medicine; Visit Provider Internal Medicine Adolescent Medicine
DX: M75.102 Unspecified rotator cuff tear or rupture of left shoulder, not specified as traumatic (principal)
CPT/HCPCS: 97032; 97110; 97140; 97166

== ENCOUNTER 2025-02-04 08:00 | Outpatient (RCR) | payer BC, OTHER, SELFPAY ==
--- NOTE | 2025-02-02 08:54 | HMH.RHREAS ---
Rehab Reassessment Rehab OP Re-assessment Start: 02/02/25 07:59 Freq: Status: Active Protocol: Document 02/02/25 08:20 GIUSEPPE (Rec: 02/02/25 08:54 GIUSEPPE [id number]) E-signed By Elham Red OT QuickDASH Activities Please rate your ability to do the following activities in the last week by selecting the number below the appropriate response. 1. Open a tight or No difficulty new jar. 2. Do heavy No difficulty technical training specialist (e. g., wash swanson, floors). 3. Carry a shopping No difficulty bag or briefcase. 4. Wash your back. Mild difficulty 5. Use a knife to No difficulty cut food. 6. Recreational No difficulty activities in which you take some force or impact through your arm, shoulder, or hand (e.g., golf, hammering, tennis, etc.). 7. During the past Not at all week, to what extent has your arm, shoulder or hand problem interfered with your normal social activities with family, friends , neighbors or groups? 8. During the past Not limited at all week, were you limited in your work or other regular daily activites as a result of your arm, shoulder or hand problem? 9. Arm, shoulder or Mild hand pain. 10. Tingling (pins None and needles) in your arm, shoulder or hand. 11. During the past Mild difficulty week, how much difficulty have you had sleeping because of the pain in your arm, shoulder or hand? Quick DASH 14 Rehab Re-assessment Subjective Subjective It only bothers me when I sleep, but I think it is fine. Objective Objective Notes Pt is a 64 year old male being seen for OP OT services and interventions to address deficits in L shoulder due to pain and limited ROM. Each session, pt is engaged in therapeutic exercise and thermal modalities and passive range of motion. Assessment Progress Assessment Progressing as Expected Assessment Notes Pt has tolerated therapy well and is consistent with attending therapy sessions. Pt reports decrease in pain and night awakenings due to L shoulder. Pt reports they still wake at night, but with activity to L shoulder, pt is able to go back to sleep. Pt reports the pain has not impacted ADLs or IADLs. Pt still presents with min pain in IR motion. Pt has met many goals. 02/02/25 Reassessment: L shoulder ROM: flex- 180 degrees, abd- 180 degrees, ER - 80 degrees, IR- 65 degrees Pain: 2-3/10 at worst QuickDash Activities: 14 STG met: 1. Pt will increase L shoulder abduction to 175 degrees to complete upper body dressing independently ~50% of the time. 2. Pt will increase L shoulder ER/IR to 75 degrees (ER) and 50 degrees (IR) in order to complete lower body dressing (putting on and taking off belt) independently ~50% of the time. 3. Pt will increase strength to 3+/5 throughout left shoulder for IR in order to complete heavier household tasks (laundry, mopping, vacuuming) independently ~50% of the time. 4. Pt will verbalize decreased pain levels at worst in L shoulder to a 3/10 in order to complete daily ADLs independently ~50% of the time. 5. Pt will demonstrate improved endurance by completing left shoulder exercises for ~20 minutes prior to rest break in order to increase his tolerance for daily work activities. 6. Pt will demonstrate independence with HEP of AAROM exercises to increase overall functional use of left shoulder in daily activities ~75% of the time. LTG MET: 1. Pt will increase L shoulder abduction to 180 degrees to complete upper body dressing independently ~50% of the time. 2. Pt will increase L shoulder ER/IR to 80 degrees (ER) and 60 degrees (IR) in order to complete lower body dressing (putting on and taking off belt) independently ~50% of the time. 3. Pt will increase strength to 4+/5 throughout left shoulder for ER/IR in order to complete heavier household tasks (laundry, mopping, vacuuming) independently ~50% of the time. 4. Pt will verbalize decreased pain levels at worst in L shoulder to a 2/10 in order to complete daily ADLs independently ~50% of the time. 5. Pt will demonstrate improved endurance by completing left shoulder exercises for ~25 minutes prior to rest break in order to increase his tolerance for daily work activities. 6. Pt will demonstrate independence with advanced strengthening exercises to increase overall functional use of left shoulder in daily activities ~75% of the time. OT Patient Goals OT Short Term 1. Pt will increase L shoulder abduction to 175 degrees Patient Goals to complete upper body dressing independently ~50% of the time. 2. Pt will increase L shoulder ER/IR to 75 degrees (ER) and 50 degrees (IR) in order to complete lower body dressing (putting on and taking off belt) independently ~50% of the time. 3. Pt will increase strength to 3+/5 throughout left shoulder for IR in order to complete heavier household tasks (laundry, mopping, vacuuming) independently ~50% of the time. 4. Pt will verbalize decreased pain levels at worst in L shoulder to a 3/10 in order to complete daily ADLs independently ~50% of the time. 5. Pt will demonstrate improved endurance by completing left shoulder exercises for ~20 minutes prior to rest break in order to increase his tolerance for daily work activities. 6. Pt will demonstrate independence with HEP of AAROM exercises to increase overall functional use of left shoulder in daily activities ~75% of the time. 7. Pt will report QuickDash Activities score 13 or below to demo improved functional performance in ADLs and IADLs ~75% of time. OT Ring Sewer Patient 1. Pt will increase L shoulder abduction to 180 degrees Goals to complete upper body dressing independently ~50% of the time. 2. Pt will increase L shoulder ER/IR to 80 degrees (ER) and 60 degrees (IR) in order to complete lower body dressing (putting on and taking off belt) independently ~50% of the time. 3. Pt will increase strength to 4+/5 throughout left shoulder for ER/IR in order to complete heavier household tasks (laundry, mopping, vacuuming) independently ~50% of the time. 4. Pt will verbalize decreased pain levels at worst in L shoulder to a 2/10 in order to complete daily ADLs independently ~50% of the time. 5. Pt will demonstrate improved endurance by completing left shoulder exercises for ~25 minutes prior to rest break in order to increase his tolerance for daily work activities. 6. Pt will demonstrate independence with advanced strengthening exercises to increase overall functional use of left shoulder in daily activities ~75% of the time. 7. Pt will report QuickDash Activities score 12 or below to demo improved functional performance in ADLs and IADLs ~75% of time. Plan Plan continue OT POC: OT POC will include each session addressing functional limitations in occupational performance with skilled OT services and interventions with therapeutic exercise and PROM and therapeutic modalities to L shoulder. Frequency of Therapy 1x/wk Duration of Therapy 4 more wks Therapeutic Exercise Yes Including Home Exercise Program Manual Therapy Yes Techniques Therapeutic Yes Activities to Return to Previous Functional/Work Level ADL/Self Care Yes Education Thermal Modalities Yes Electrical Yes Stimulation Ultrasound/ Yes Phonophoresis Iontophoresis Yes Parrafin Yes Orthotics/Bracing/ Yes Splinting Group Therapy for Yes Medicare Eval/Re-Eval Yes Time and Billing Charge for OT No reassessment? PHYSICIAN CERTIFICATION: I certify the specified therapy services for Parth Oliva Isidro are required, authorized, and reviewed every 30 days.
== END 2025-02-04 23:59 | disposition home or self-care (01) ==
LOC: OT 08:00
PROVIDERS: PCP Internal Medicine Adolescent Medicine; Visit Provider Internal Medicine Adolescent Medicine
DX: M75.102 Unspecified rotator cuff tear or rupture of left shoulder, not specified as traumatic (principal)
CPT/HCPCS: 97014; 97032; 97110; 97140; G0283